=== PATIENT | female | born 1945 | race Caucasian/White ===

== ENCOUNTER 2018-03-02 22:04 | Inpatient (IN) | payer MEDICARE ==
[~2018-03-02] VITALS: Ht 162.6 cm; Wt 44.9 kg
[2018-03-02 22:21] LABS: BASOPHILS ABSOLUTE AUTO 0.09 K/mm3 (0.00-0.23); BASOPHILS PERCENT AUTO 1 % (0-2); EOSINOPHILS ABSOLUTE AUTO 0.38 K/mm3 (0.00-0.68); EOSINOPHILS PERCENT AUTO 3 % (0-6); Hematocrit 35.8 % (33.0-51.0); Hemoglobin 12.2 g/dL (11.5-16.0); IMMATURE GRAN ABSOLUTE AUTO 0.02 K/mm3 (0.00-0.10); IMMATURE GRAN PERCENT AUTO 0 % (0-1); LYMPHOCYTES ABSOLUTE AUTO 3.14 K/mm3 (0.84-5.20); LYMPHOCYTES PERCENT AUTO 28 % (21-46); MONOCYTES ABSOLUTE AUTO 0.86 K/mm3 (0.16-1.47); MONOCYTES PERCENT AUTO 8 % (4-13); Mean Corpuscular HGB 30.7 pg (26.0-34.0); Mean Corpuscular HGB Conc 34.1 g/dL (31.5-36.5); Mean Corpuscular Volume 90 fL (80-100); Mean Platelet Volume 8.7 fL (9.1-12.4); NEUTROPHILS ABSOLUTE AUTO 6.65 K/mm3 (1.96-9.15); NEUTROPHILS PERCENT AUTO 60 % (41-73); Platelet Count 561 K/mm3 (150-400); RDW Coefficient Variation 12.9 % (11.7-14.2); RDW Standard Deviation 43.3 fL (35.1-46.3); Red Blood Cell Count 3.98 M/mm3 (3.80-5.20); White Blood Cell Count 11.14 K/mm3 (4.00-11.30)
[2018-03-02 22:38] LABS: Troponin I 0.035 ng/mL (0.000-0.040)
[2018-03-02 22:46] LABS: Albumin/Globulin Ratio 0.5 (0.8-1.8); Bilirubin, Total 0.2 mg/dL (0.1-1.0); Bun/Creatinine Ratio 18.6 (12.0-20.0); Calcium, Blood 11.2 mg/dL (8.5-10.1); Creatinine, Blood 1.13 mg/dL (0.40-1.00); Globulin, Blood 5.5 g/dL (2.2-4.0); Potassium, Blood 2.2 mmol/L (3.5-5.5); Total Protein, Blood 8.5 g/dL (6.4-8.2)
[2018-03-03] MEDS ORDERED: IBUPROFEN200 MG PO (00:04)
--- NOTE | 2018-03-03 05:10 | NUR ---
SHIFT SUMMARY PT ER ADMIT THIS SHIFT FOR HYPOKALEMIA. POTASSIUM CRITCAL AT 2.2. PT RECEIVED ORAL K+ IN THE ER, AND HAS RECEIVED A K RIDER AND MAGNESIUM SINCE HER ARRIVAL TO THE UNIT. MAITENANCE FLUIDS WITH POTASSIUM INFUSING AT THIS TIME. AWAITING AM LAB RESULTS AT THIS TIME PT HAS HAD A CHEST X-RAY, AND IS AWAITING A CHEST CT AT THIS TIME. PT ALSO COMPLAINS OF PERSISTANT BACK PAIN, THAT SHE SAYS STARTED ABOUT 2-3 WEEKS AGO. INTENISTY INCREASES WITH MOVEMENT. MEDICATED X1 WITH IV FENTANYL WHICH PROVIDED RELIEF. UA SENT. PT DENIES N/V. TELE IN PLACE WITH NSR. SHE IS A/OX4. PLESANT WITH CARE. ADMISSION COMPLETE. WILL CONTINUE TO MONITOR AND REPORT TO ONCOMING RN.
[2018-03-03 05:19] LABS: Source, Urine Clean Catch
[2018-03-03 05:26] LABS: Appearance, Urine Hazy (Clear); Bilirubin, Urine Neg (Neg); Blood, Urine 1+ (Neg); Color, Urine Yellow (P-Yellow); Glucose Qualitative, Urine Neg (Neg); Ketones, Urine Neg (Neg); Leukocyte Esterase, Urine 3+ (Neg); Nitrite, Urine Neg (Neg); Protein, Urine 2+ (Neg); Specific Gravity, Urine 1.015 (1.003-1.022); Urobilinogen, Urine NORM (Normal)
[2018-03-03 05:28] LABS: Hematocrit 31.9 % (33.0-51.0); Hemoglobin 10.8 g/dL (11.5-16.0); Mean Corpuscular HGB 30.2 pg (26.0-34.0); Mean Corpuscular HGB Conc 33.9 g/dL (31.5-36.5); Mean Corpuscular Volume 89 fL (80-100); Mean Platelet Volume 9.2 fL (9.1-12.4); Platelet Count 484 K/mm3 (150-400); RDW Standard Deviation 42.6 fL (35.1-46.3); Red Blood Cell Count 3.58 M/mm3 (3.80-5.20); White Blood Cell Count 8.22 K/mm3 (4.00-11.30)
[2018-03-03 05:31] LABS: Red Blood Cells, Urine 0-2 /hpf (0-2)
[2018-03-03 05:32] LABS: Bacteria Many /hpf; Squamous Epithelial Cells Many /hpf (Few)
[2018-03-03 06:06] LABS: Albumin, Blood 2.5 g/dL (3.4-5.0); Albumin/Globulin Ratio 0.6 (0.8-1.8); Bilirubin, Total 0.2 mg/dL (0.1-1.0); Bun/Creatinine Ratio 17.8 (12.0-20.0); Calcium, Blood 10.1 mg/dL (8.5-10.1); Creatinine, Blood 1.01 mg/dL (0.40-1.00); Globulin, Blood 4.4 g/dL (2.2-4.0); Potassium, Blood 2.8 mmol/L (3.5-5.5); Total Protein, Blood 6.9 g/dL (6.4-8.2)
--- NOTE | 2018-03-03 07:09 | NUR ---
PT GAVE VERBAL CONSENT FOR ME TO TREAT HER TODAY.
--- NOTE | 2018-03-03 08:47 | NUR ---
PT. GIVEN 50 MEQ OF IV FENTANYL FOR REPORT OF ICREASING PAIN.
--- NOTE | 2018-03-03 10:57 | NUR ---
NOTIFIED THAT THE FENTYNYL IV WAS ONLY LASTING FOR 15 MINUTES, ORDERED DILAUDID, GAVE 1 MG IV DILAUDID BEFORE PT. WENT TO CT.
--- NOTE | 2018-03-03 15:00 | NUR ---
PT. HAS A NEW DIAGNOSIS OF ADVANCED CANCER. PT. AND DAUGHTER EXTREMELY UPSET. REQUESTED ATIVAN FOR PT. TO HELP HER DEAL WITH THE NEW DIAGNOSIS. SPIRITUAL CARE WORKER JOAN IN TO SEE PATIENT THEN PALLIATIVE CARE TO SEE PT. AND DAUGHTER. PT. WAS GIVEN IMG IV ATIVAN AND 1 MG IV DILAUDID. PT. HAS BEEN SLEEPING SINCE. PT. BREATHING EVEN AND DEEP.
--- NOTE | 2018-03-03 15:14 | NUR ---
Called to room by chaplain Jenn. Pt has just received a lung cancer diagnosis. Daughter is polite and able to talk. Pt is snoring in bed after being medicated with Ativan, following the doctor telling her of the news. Apparently, she was distraught to the point she required medication to calm her down. Daughter is at bedside. She will be heathcare designate. She lives in [place], across the street from her mother, they are very close, she reports. Reviewed code status briefly. Gave information on advance directives, POLST, and life saving interventions. Daughter is tearful. Explained that I am a Palliative care nurse and will assist with symptom control. Will remain available.
--- NOTE | 2018-03-03 16:09 | NUR ---
Per admit trigger, I attempted ot meet with Daisy regarding and advanced directive and offer prayer. When I entered room, Daisy was sobbing and inconsolable. Dtr explained pt had just been told she has cancer. Daisy then said, "There's nothing they can do. I'm going to !" Clearly, this was not the proper time to address AD. It was also apparent pt and family needed time to come to terms with dx. That said, I suspected they had not heard the entirety of physician's comments. Asked Patrica from Palliative Care to see pt and family. RN also asked physician to return. I will attempt to see Daisy tomorrow.
--- NOTE | 2018-03-03 18:45 | NUR ---
PT. SLEEPING, PT. SON IN ROOM AT THIS TIME. NO OTHER CHANGES NOTED THIS SHIFT.
--- NOTE | 2018-03-03 21:52 | NUR ---
BP 187/88 AND APRESOLINE 10 MG IV GIVEN PER EMAR OF=956/77 ON REASSESSMENT. CALL LIGHT IN REACH WILL CONTINUE TO MONITOR.
--- NOTE | 2018-03-04 00:08 | NUR ---
PATIENT CONFUSED AND ASKED WHO IS MAKING COOKIES. PATIENT REORIENTED BACK TO PLACE. CALL LIGHT IN REACH.
--- NOTE | 2018-03-04 02:53 | NUR ---
PATIENT HAVING URINARY RETENTION. LAST TWO VOIDS WERE 20 AND 1O mL. BLADDER SCAN RESIDUAL 986mL. HOSPITALIST DR RIOS NOTIFIED AND REPORTS STRAIGHT CATH TIMES ONE AND BLADDER SCAN IN SIX HOURS.
--- NOTE | 2018-03-04 02:57 | NUR ---
PATIENT STRAIGHT CATH AFTER INCONTINENT VOID AND 800 mL OUT. WILL PASS ALONG TO DAY RN TO BLADDER SCAN IN SIX HOURS. PATIENT TOLERATED WELL. CALL LIGHT IN REACH.
--- NOTE | 2018-03-04 04:20 | NUR ---
SHIFT SUMMARY PATIENT HAD URINARY RETENTION OF [address] RIOS ORDERED STRAIGHT CATH X ONE AND RECHECK IN SIX HOURS AT 08:30. 800mL OUT ON STRAIGHT CATH AFTER INCONTINENT VOID. PATIENT BP 187/88 AND APRESOLINE 10 MG IV GIVEN PER EMAR AND RECHECKED AT 157/71. DILAUDID 1MG GIVEN FOR BACK PAIN X TWO. PATIENT ABLE TO SLEEP AFTER PAIN MEDS. PATIENT CONFUSED EARLY IN SHIFT AND ASKED WHO WAS MAKING COOKIES. PIV INTACT. PULP MACHINE OPERATOR REPORTS NSR 80. PATIENT TWO PERSON ASSIST THIS SHIFT COMPARE TO ONE ON DAYS. STAYING SLUMPED OVER ON STAND PIVOT TRANSFER. REDUCED ANXIETY THIS SHIFT. CALL LIGHT IN REACH. BED IN LOWEST POSITION. WILL CONTINUE TO MONITOR UNTIL DAY SHIFT NURSE ASSUMES CARE.
[2018-03-04 06:04] LABS: Mean Platelet Volume 9.4 fL (9.1-12.4); Platelet Count 492 K/mm3 (150-400)
[2018-03-04 06:18] LABS: International Normalized Ratio 1.03; Prothrombin Time Results 10.6 Sec (9.7-11.5)
[2018-03-04 10:27] LABS: Bun/Creatinine Ratio 11.9 (12.0-20.0); Calcium, Blood 10.2 mg/dL (8.5-10.1); Creatinine, Blood 1.01 mg/dL (0.40-1.00); Potassium, Blood 2.7 mmol/L (3.5-5.5)
--- NOTE | 2018-03-04 12:20 | NUR ---
DAUGHTER JUDE RETURNED TO ROOM, WENT IN TO LET HER KNOW WHAT I FOUND OUT ABOUT DR. HERRERA COMING TO SEE PT. IN THE HOSPITAL. DAUGHTER BECAME ANGRY WHEN I TOLD HER THE APPOINTMENT WASN'T UNTIL NEXT THURSDAY AN OUTPATIENT. SHE YELLS "WHY 5 DAYS THATS A WHOLE WEEK" TRIED TO EXPLAIN DR. HERRERA WOULDN'T HAVE THE BIOPSY RESULTS UNTIL THEN YELLED "ARE YOU KIDDING ME, WHY SO LONG?" LET HER KNOW THE BIOPSY HAS TO BE SENT OUT. WENT ON TO EXPLAIN PT. DID NOT HAVE INSURANCE, DAUGHTER STATES " SHE HAS MEDICARE" I EXPLAINED SHE ONLY HAS PART-A WHICH COVERS HOSPITALIZATION ONLY. LET HER KNOW I CONTACTED [employer] TO HAVE THEM COME TALK TO HER ABOUT INSURANCE. "WELL WHAT ABOUT [employer] SHOULDN'T THAT TAKE CARE OF IT?" TOLD HER I WAS UNSURE OF THAT S.S. COULD EXPLAIN THAT. DAUGHTER STATES "I DON'Y LIKE YOU AND IM GOING TO REPORT YOU TO HAND SEWER " " DON'T EVER TALK TO MY MOM AGAIN, YOU TALK TO MY SISTER OR I" EXPLAINED YHE PT. HAS A RIGHT TO KNOW AND WE CANNOT WITHHOLD INFORMATION. STATES "I DONT CARE YOU TELL ME OR MY SISTER."
--- NOTE | 2018-03-04 16:30 | NUR ---
PT. STILL UNABLE TO VOID , BLADDER SCAN SHOWED 547 CC, ASSISTED TO BSC BUT PT. STLL UNABLE TO VOID AND REPORTING INCREASING PAIN IN BLADDER AREA, 16 [place] CATHETER PLACED WITH 800 CC'S CYU RETURN. UA SENT PER PROTOCOL/
[2018-03-04 16:38] LABS: Source, Urine Catheter
[2018-03-04 16:41] LABS: Appearance, Urine Clear (Clear); Bilirubin, Urine Neg (Neg); Blood, Urine 1+ (Neg); Color, Urine Yellow (P-Yellow); Glucose Qualitative, Urine Neg (Neg); Ketones, Urine 1+ (Neg); Leukocyte Esterase, Urine Neg (Neg); Nitrite, Urine Neg (Neg); Protein, Urine 2+ (Neg); Specific Gravity, Urine 1.015 (1.003-1.022); Urobilinogen, Urine NORM (Normal)
[2018-03-04 16:49] LABS: Bacteria Rare /hpf; Squamous Epithelial Cells Rare /hpf (Few); White Blood Cells, Urine 0-2 /hpf (0-5)
--- NOTE | 2018-03-04 16:51 | NUR ---
Attempted to meet with family/pt this afternoon. Pt alone in room and sleeping. I will remain available.
--- NOTE | 2018-03-04 18:33 | NUR ---
PT. SLEEPING AT THIS TIME, PT HAS ONLY TAKEN SIPS OF FULL LIQUIDS. 2 K-RIDERS GIVEN TODAY PLUS 40MEQ OF KDUR PO. PT. ABLE TO FEED SELF BUT NEEDS HEAVY ASSIST TO BSC. PT. NOTED TO BE CONFUSED WHEN WAKING THIS MORNING, THOUGHT IT WAS STILL YESTERDAY. PT. FAMILY HAS BEEN IN AND OUT OF ROOM TODAY ALONG WITH FRIENDS. PT'S SON AND DAUGHTER JUDE CAN BECOME VOLATILE AT THE DROP OF A HAT.
--- NOTE | 2018-03-05 04:06 | NUR ---
SHIFT SUMMARY PATIENT HAD NO ACUTE CHANGES OBSERVED THIS SHIFT. AXOX 3 WITH CONFUSION AT TIMES. TWO PERSON ASSIST TO BSC. PIV REMAINS INTACT. CUMMINGS PATENT AND DRAINING. SCHEDULING SPECIALIST REPORTS NSR 80. DILAUDID 1 MG IV GIVEN PER EMAR. PATIENT ABLE TO SLEEP AFTER PAIN MANAGEMENT. DENIES SOB AND N/V. CALL LIGHT IN REACH. BED IN LOWEST POSITION. WILL CONTINUE TO MONITOR UNTIL DAY SHIFT NURSE ASSUMES CARE.
[2018-03-05 05:29] LABS: Anion Gap 11 mmol/L (6-16); Blood Urea Nitrogen 13 mg/dL (8-24); Bun/Creatinine Ratio 13.5 (12.0-20.0); CO2, Blood 13 mmol/L (21-32); Calcium, Blood 10.7 mg/dL (8.5-10.1); Chloride, Blood 120 mmol/L (98-108); Creatinine, Blood 0.97 mg/dL (0.40-1.00); Glomerular Filtration Rate >60 (60-); Glucose, Blood 103 mg/dL (70-99); Potassium, Blood 3.5 mmol/L (3.5-5.5); Sodium, Blood 144 mmol/L (136-145)
--- NOTE | 2018-03-05 06:01 | NUR ---
BP 187/84 AND IV APRESOLINE 10 MG GIVEN BP 156/81 ON REASSESSMENT. CALL LIGHT IN REACH.
--- NOTE | 2018-03-05 08:00 | NUR ---
PT IN PAIN. A/O STATES PAIN IN BACK. FROM CANCER. HAS BEEN FOR AT LEAST A MONTH. H/R REG, NO MURMER NOTED. TELE REMOVED PER DR ORDERS. LUNGS CLEAR, RESP LABORED. ON R/A. BT HYPO. PT STATES NOT EATING MUCH IN LAST FEW DAYS. LAST BM 3 DAYS. VOIDS CUMMINGS CATH, CLEAR YELLOW FLUID DRAINING. 1 HEAVY ASST. VERY WEAK. NEW CANCER DIAGNOSIS. BED IN LOW POSITION, CALL LITE IN REACH, CALLS APPROP
--- NOTE | 2018-03-05 10:00 | NUR ---
TALKED TO PT AND DAUGHTER AT LENGTH ABOUT NEW PAIN CONTROL. LONG ACTING OXY AND SHORT ACTING TO BREAK PAIN NEEDED. DID START DAY WITH 2 SHORT ACTING OXY AND NOT RESOLVED. ADDING TO LONG ACTING STARTING SHORTLY. THEN GOING TO SHORT ACTING PRN. PT AND DAUGHTER UNDERSTAND BALANCE BETWEEN STAYING AWAKE, BREATHING, AND PAIN CONTROL. CONTINUE TO MONITOR AND MEDICATE.
--- NOTE | 2018-03-05 14:29 | NUR ---
PT DAUGHTER ADVISED PT IN PAIN. SPOKE TO PT. GAVE HER 1 SHORT ACTING PAIN MED. ALREADY HAS LONG ACTING ON BOARD. DISCUSSED 1 MORE AVAIL. WANT PAIN DOWN AND NOT OVER SEDATED. AGREED BY ALL. CONTINUE TO MONITOR.
--- NOTE | 2018-03-05 14:51 | NUR ---
PT STATES PAIN BETTER NOW. STILL ABOUT 3-4 BUT TOLERABLE. DENIES ADDITIONAL PAIN MED. ADVISED IS AVAIL AT JUST A CALL. CALL LITE IN REACH, CALLS APPROP. BED I LOW POSITION, DAUGHER NOT IN ROOM AT THIS MOMENT.
--- NOTE | 2018-03-05 16:26 | NUR ---
PT RESTING, EYES CLOSED, RESP EASY, UNLABORED. DID NOT AWAKEN.
--- NOTE | 2018-03-05 17:14 | NUR ---
PT RESTING, AWOKE TO ASK HOW PAIN IS.. SHE MUCH BETTER NEARLY GONE. FALLS ASLEEP READILY WHEN STOP TALKING TO HER. EASY TO AWAKEN.
--- NOTE | 2018-03-05 19:16 | NUR ---
PT RESTING NOW. STATES PAIN UNDER CONTROL. AWAKENS EASILY WHEN TALKED TO, BUT DOES FALL ASLEEP QUICKLY. DID PLACE MEPELEX ON COCCYX FOR PROTECTION OF BONY AREA. IS SOME REDNESS. ADVISED PT TO STAY OFF BACK AND MOVE TO SIDES REGULARLY PILLOWS PLACED WHEN ON BACK TO KEEP TO EITHER SIDE. NO OTHER CONCERNS AT THIS TIME. DR MARKS WILL SEE PT AND DISCUSS PROGNOSIS . BED IN LOW POSITION,, CALL LITE IN REACH, CALLS APPROP, BED ALARM ON FOR SAFETY
--- NOTE | 2018-03-06 04:04 | NUR ---
CALL PLACED TO HOSPITALIST, DR RIOS, IN REGARDS TO POSITIVE URINE CULTURE ON 03/03/18 @ 5707. PT NOT ON ANY ANTIBIOTICS, AND NO NOTES CHARTED ABOUT DISPOSITION OF THIS POSITIVE CULTURE. DR RIOS REPORTS THAT HE WILL LOOK AT PATIENTS CHART AND "TAKE CARE OF IT".
--- NOTE | 2018-03-06 06:18 | NUR ---
SHIFT SUMMARY: PT DROWSY, RESPONSIVE TO VERBAL STIMULI. C/O OF BACK PAIN, WINCING c ALL MOVEMENT. RECIEVING OXYCODONE Q4H, HOWEVER THIS AM PAIN WAS SO SEVERE THAT SHE RQUIRED 1MG DILAUDID FOR RELIEF. SCHEDULED OXYCONTIN BID. FAMILY CALLED EARLIER IN SHIFT FOR UPDATES ON PT, FAMILY BECAME VERY TEARFUL DURING PHONE CALL. CALLED HOSPITALIST EARLIER IN SHIFT IN REGARDS TO + URINE CULT ON 03/03/18. SEE PREVIOUS NOTE. WILL CONT TO MONITOR AND PROVIDE CARE UNTIL PRESUMED BY ONCOMING RN.
[2018-03-06 07:57] LABS: Bun/Creatinine Ratio 13.5 (12.0-20.0); Calcium, Blood 10.9 mg/dL (8.5-10.1); Creatinine, Blood 1.04 mg/dL (0.40-1.00); Potassium, Blood 3.7 mmol/L (3.5-5.5)
--- NOTE | 2018-03-06 09:15 | NUR ---
DR GIMENEZ IN TO SEE PT. PER DR GIMENEZ HE WILL CALL DR HERRERA TODAY. PALLIATIVE CARE AND SPIRITUAL CARE TO SEE PT. DAILY COLACE AND MIRALAX ORDERED FOR NO BM SINCE ADMIT.
--- NOTE | 2018-03-06 09:20 | NUR ---
ORDERS TO ADVANCE DIET TOLERATED. PT REPORTS SHE WANTS TO TRY FOOD. ORDER PLACED FOR SOFT DIET AND STRAWBERRY ENSURE WITH MEALS.
--- NOTE | 2018-03-06 17:04 | NUR ---
SHIFT SUMMARY- PT DROWSY T/O MOST OF THE SHIFT. OXYCONTIN INCREASED TO 15MG BID. PT AWAKES BUT SLOW TO RESPOND. BEDBATH GIVEN AND EGGCRATE AND HEAL PROTECTORS PLACED. LS DIMINISHED, MOIST OCC NPC, ON RA. BT HYPO, BOWEL PROTOCOL STARTED FOR NO BM SINCE ADMIT. POOR PO INTAKE, PT STATED SHE WANTED TO TRY SOFT MEALS BUT THEN DID NOT AWAKE TO EAT LUNCH. AWAITING DR HERRERA TO DISCUSS PLAN WITH PT AND FAMILY, ATTEMPTING TO CALL TODAY BUT DID NOT HEAR BACK. PT DOES HAVE AN APPT SCHEDULED WITH HIM AN OUTPATIENT. PLAN IS FOR DAUGHTER TO TAKE PT HOME. FLAGYL STARTED FOR UTI. NO OTHER ACUTE CHANGES THIS SHIFT.
[2018-03-07 05:00] LABS: Hemoglobin 10.5 g/dL (11.5-16.0); Mean Corpuscular HGB 29.7 pg (26.0-34.0); Mean Corpuscular HGB Conc 31.8 g/dL (31.5-36.5); Platelet Count 480 K/mm3 (150-400); RDW Coefficient Variation 13.8 % (11.7-14.2); RDW Standard Deviation 47.3 fL (35.1-46.3); Red Blood Cell Count 3.54 M/mm3 (3.80-5.20); White Blood Cell Count 12.79 K/mm3 (4.00-11.30)
[2018-03-07 05:01] LABS: Mean Corpuscular Volume 93 fL (80-100)
[2018-03-07 05:17] LABS: Anion Gap 13 mmol/L (6-16); Blood Urea Nitrogen 19 mg/dL (8-24); Bun/Creatinine Ratio 19.8 (12.0-20.0); CO2, Blood 16 mmol/L (21-32); Calcium, Blood 11.4 mg/dL (8.5-10.1); Chloride, Blood 121 mmol/L (98-108); Creatinine, Blood 0.96 mg/dL (0.40-1.00); Glomerular Filtration Rate >60 (60-); Glucose, Blood 130 mg/dL (70-99); Potassium, Blood 3.3 mmol/L (3.5-5.5); Sodium, Blood 150 mmol/L (136-145)
--- NOTE | 2018-03-07 07:12 | NUR ---
SHIFT SUMMARY: NO ACUTE CHANGES THIS SHIFT. PT LETHARGIC, SLEEPING/AROUSABLE T/O THE SHIFT. PAIN 10/10 THIS MORNING, CRYING OUT IN PAIN. ADMINISTERED 1 MG DILAUDID IV. Q2H TURNS, MEPILEX APPLIED TO COCCYX FOR BREAKDOWN. NO OTHER ACUTE CHANGES TO REPORT.
--- NOTE | 2018-03-07 10:11 | NUR ---
IV ACCESS- PT HAS A 20G IV TO RIGHT WRIST. IV DOCUMENTED IN RIGHT AC. UNSURE WHEN IV TO RIGHT WRIST PLACED.
[2018-03-07 13:30] LABS: Albumin, Blood 2.4 g/dL (3.4-5.0); Anion Gap 11 mmol/L (6-16); Blood Urea Nitrogen 22 mg/dL (8-24); Bun/Creatinine Ratio 22.4 (12.0-20.0); CO2, Blood 17 mmol/L (21-32); Calcium, Blood 11.7 mg/dL (8.5-10.1); Chloride, Blood 122 mmol/L (98-108); Creatinine, Blood 0.98 mg/dL (0.40-1.00); Glomerular Filtration Rate 59 (60-); Glucose, Blood 126 mg/dL (70-99); Potassium, Blood 3.8 mmol/L (3.5-5.5); Sodium, Blood 150 mmol/L (136-145)
--- NOTE | 2018-03-07 15:37 | NUR ---
PT DAUGHTER IN TO SEE PT. SHE REPORTS SHE WILL BE IN EARLY TOMORROW AM AT APROX [address] HERRERA. SHE IS ASKING THAT PAIN MEDICATIONS BE HELD TO ASSURE THAT HER MOTHER IS AWAKE AND ALERT TO MAKE DECISIONS REGARDING HER CARE AND PLAN. SHE IS ALSO ASKING THAT WE DO NOT GIVE OUT ANY INFORMATION TO ANYONE BUT HERSELF RACHEL THE DAUGHTER, INCLUDING HER BROTHER AND SISTER. SHE REPORTS SHE WILL BE TAKING OVER CARE FOR HER MOTHER UPON DISCHARGE AND HER MOM SIGNED A PAPER THAT STATED INFO TO ONLY BE GIVEN TO HER, I CONFIRMED THIS WITH THE CONSENT OF VERBAL RELEASE OF INFORMATION THAT PT SIGNED ON THE THAT ONLY HAS DAUGHTER GABBIE LISTED. DAUGHTER ALSO ASKS THAT WE ALLOW HER TO REST AND NOT GIVE HER PHONE CALLS AT THIS TIME. WILL PASS ALONG IN REPORT AND SIGN PLACED ON DOOR FOR VISITORS TO SEE NURSE PRIOR TO ENTERING.
--- NOTE | 2018-03-07 17:06 | NUR ---
SHIFT SUMMARY- PT VERY TEARFUL THIS AM AND REPORTED 10/10 BACK PAIN. OXYCONTIN 15MG INCREASED TO TID. PT HAS NOT REQUIRED ANY FURTHER PRN MEDS SINCE. PT HAS BEEN DROWSY BUT AWAKES TO VERBAL SIMULI, SLOW TO RESPOND. LS CLEAR/DIMINISHED, ON RA, RESP SHALLOW. HRR. MEPILEX TO COCCYX, EGGCRATE AND HEAL PROTECTORS IN PLACE, TURN Q2H. CUMMINGS DRAINING LAUREN URINE. POOR PO INTAKE, PT NEEDS ENCOURAGEMENT AND ASSISTANCE WITH EATING BUT WOULD ONLY TAKES BITES AND SIPS. MIRALAX AND COLACE GIVEN FOR NO BM, HOWEVER DAUGHTER REPORTS PT HAS NOT EATEN FOR QUITE SOME TIME. NEW IV PLACED TO LFA, 1/2NS AT 125 ML/HR RUNNING. DAUGHTER REPORTS SHE IS THE ONLY THAT SHOULD BE RECEIVING MEDICAL INFORMATION PER HER MOTHER. DAUGHTER TO BE IN EARLY TOMORROW TO MEET WITH DR HERRERA FOR PLAN.
--- NOTE | 2018-03-07 17:50 | NUR ---
PT AWAKE AND LOOKING AT ME WHEN ATTEMPTING TO GET PT TO TAKE A DRINK OF WATER HOWEVER PT DOES NOT SUCK ON STRAW WHEN ASKED TO AND PT NOTED TO BE HOLDING BITES IN HER MOUTH AND NOT FOLLOWING DIRECTION TO SWALLOW. MOUTH SWABBED OUT OF ANYTHING ORAL AND DINNER AND PM POTASSIUM HELD. AT THIS TIME DR PARADA CALLED FOR AN UPDATE AND NOTIFIED HER THAT PT HAS BEEN TOO DROWSY WITH INCREASE OF OXYCONTIN 15MG TO TID, DR PARADA DECREASED HER TO OXYCONTIN 10MG TID TO KEEP HER FROM BEING TO SEDATED.
--- NOTE | 2018-03-07 17:59 | NUR ---
rview of pt with physician and nursining awaiting oncology.
[2018-03-08 04:58] LABS: BASOPHILS ABSOLUTE AUTO 0.06 K/mm3 (0.00-0.23); BASOPHILS PERCENT AUTO 1 % (0-2); EOSINOPHILS ABSOLUTE AUTO 0.34 K/mm3 (0.00-0.68); EOSINOPHILS PERCENT AUTO 3 % (0-6); Hematocrit 30.4 % (33.0-51.0); Hemoglobin 9.5 g/dL (11.5-16.0); IMMATURE GRAN ABSOLUTE AUTO 0.04 K/mm3 (0.00-0.10); IMMATURE GRAN PERCENT AUTO 0 % (0-1); LYMPHOCYTES ABSOLUTE AUTO 1.41 K/mm3 (0.84-5.20); LYMPHOCYTES PERCENT AUTO 12 % (21-46); MONOCYTES ABSOLUTE AUTO 1.18 K/mm3 (0.16-1.47); MONOCYTES PERCENT AUTO 10 % (4-13); Mean Corpuscular HGB 30.1 pg (26.0-34.0); Mean Corpuscular HGB Conc 31.3 g/dL (31.5-36.5); Mean Platelet Volume 8.9 fL (9.1-12.4); NEUTROPHILS ABSOLUTE AUTO 9.08 K/mm3 (1.96-9.15); NEUTROPHILS PERCENT AUTO 75 % (41-73); Platelet Count 434 K/mm3 (150-400); RDW Coefficient Variation 13.8 % (11.7-14.2); RDW Standard Deviation 49.5 fL (35.1-46.3); Red Blood Cell Count 3.16 M/mm3 (3.80-5.20); White Blood Cell Count 12.11 K/mm3 (4.00-11.30)
[2018-03-08 05:00] LABS: Mean Corpuscular Volume 96 fL (80-100)
[2018-03-08 05:22] LABS: Albumin, Blood 2.1 g/dL (3.4-5.0); Anion Gap 12 mmol/L (6-16); Blood Urea Nitrogen 22 mg/dL (8-24); Bun/Creatinine Ratio 23.5 (12.0-20.0); CO2, Blood 16 mmol/L (21-32); Calcium, Blood 10.9 mg/dL (8.5-10.1); Chloride, Blood 120 mmol/L (98-108); Creatinine, Blood 0.94 mg/dL (0.40-1.00); Glomerular Filtration Rate >60 (60-); Glucose, Blood 101 mg/dL (70-99); Phosphorus, Blood 2.9 mg/dL (2.5-4.9); Potassium, Blood 3.2 mmol/L (3.5-5.5); Sodium, Blood 148 mmol/L (136-145)
--- NOTE | 2018-03-08 06:12 | NUR ---
SHIFT SUMMARY: NO ACUTE CHANGES TO REPORT. PT PAINFUL; REQUIRES 1MG OF PRN DILAUDID AT 2100. PT WAKES UP 1X SCREAMING OUT FOR DAUGHTER, AGITATED, CONFUSED. BECOMES TEARFUL UPON ANY INTERACTION, WITHDRAWN/FEARFUL/ANXIOUS. HAVING DIFFICULTY SWALLOWING PILLS, EVEN WHEN CRUSHED IN APPLESAUCE. CUMMINGS CATH IN PLACE. 1/2NS RUNNING @ 125 ML/HR. REFUSING ALL ORAL INTAKE, MOUTH SWABS ENCOURAGED. Q2H TURNS, MEPILEX ON COCCYX FOR BREAK DOWN. EGG CRATE MATTRESS IN PLACE. HEEL PROTECTORS ON. WILL CONT TO MONITOR AND PROVIDE CARE UNTIL PRESUMED BY ONCOMING RN.
--- NOTE | 2018-03-08 11:47 | NUR ---
Pt visit this AM. Pt is resting with her eyes closed during visit and appears comfortable with a FLACC score of 0/10. Pt's daughter Emily and Egg Candler present during visit. Emily reports the Dr Lara visited this AM and discussion was made about comfort measures and hospice. Educated Emily on comfort care measures including DNR status and she is agreeable with plan. Educated Emily on goal for same day admission to home hospice when discharged from hospital. Emily expresses concerns of her brother possibly causing issues or further anxiety for Pt and is considering placing Pt as confidential. Spoke with Dr Longoria and received V/O for order set of comfort measures and to D/C medications. Spoke with Pt's nurse Cathy and she is agreeable with plan. Plan is for Pt to go home on hospice and will remain available for symptom management and therapeutic visits.
--- NOTE | 2018-03-08 14:13 | NUR ---
Met with dtr, Emily. She is tearful, but appropriate. She understands her mom is nearing end-of-life, and responded well to emotional encouragement. Emily expressed concerns about her brother. According to her, "he is unpredictable and angry." He lives in his mom's home, and Emily states that when mom dies, he will be homeless. She expresed concern that he will return to hospital and be loud and aggressive. Advised Emily about "confidential" status. She is fearful "that will set him off." Asked by staff to meet with pt's son if/when he returns. Later in afternoon, I met with pt's dtr Melinda, her spouse and son. They are calm and appropriate and have arrrived from [place]. Gently explained hospice/ copmfort care. They agree this is the best POC. I will remain available to this family.
--- NOTE | 2018-03-08 17:20 | NUR ---
SHIFT SUMMARY PT NOW ON COMFORT CARE. AWAITING HOSPISE APPROVAL. PT RESTING COMFORTABLY IN BED. FENTANYL PATCH IN PLACE. PT HAS BEEN TOLERATING 20MG ROXINOL ORALLY. FAMILY IN ROOM MOST THE DAY. PT TOLERATED REPOSITIONING TWICE THIS SHIFT. BREIF CLEAN & DRY AT THIS TIME. CUMMINGS PATENT & DRAINING. PT ALERT & ORIENTED WHEN AWAKE. NO OTHER CHANGES IN ASSESSMENT AT THIS TIME. WILL CONTINUE TO MONIOTOR & MEDICATE NEEDED.
--- NOTE | 2018-03-09 07:00 | NUR ---
finally accepted pain medication after much encouragement, lots of pain in movement but continued to decline pain mendication but unable to communicate why, after medication has been resting quietly. call light in reach, saline locked, room air, walking rounds completed with day shift
--- NOTE | 2018-03-09 07:51 | NUR ---
PATIENT IS ASLEEP, APPEARS TO BE RESTING COMFORTABLY. RN WILL CONTINUE TO MONITOR.
--- NOTE | 2018-03-09 09:38 | NUR ---
PATIENT STILL RESTING, APPEARS COMFORTABLE. NO SIGNS OF PAIN OR DISTRESS. FAMILY AT THE BEDSIDE. DENIES ANY NEEDS AT THIS TIME. PALLIATIVE CARE NURSE CONSULTED. RN WILL CONTINUE TO MONITOR.
--- NOTE | 2018-03-09 09:39 | NUR ---
Pt resting in bed with her eyes closed and appears comfortable. FLACC score is 0/10. Pt's daughter present during visit. She reports a plan to contact [facility] disability to inquire about her being the Pt's paid caregiver. She reports no conerns at this time. Spoke with Pt's nurse Kateryna and she reports no concerns at this time. Will remain available.
--- NOTE | 2018-03-09 12:45 | NUR ---
PATIENT HAS BEEN SLEEPING THROUGHOUT THE SHIFT. APPEARS TO BE COMFORTABLE. DAUGHTER IS AT THE BEDSIDE, WHEN I WENT IN SHE ASKED US TO NOT REPOSITION THE PATIENT BECAUSE SHE SEEMED COMFORTABLE. WILL CONTINUE TO MONITOR.
--- NOTE | 2018-03-09 15:59 | NUR ---
PATIENT RESTING, APPEARS TO BE COMFORTABLE. NO SIGNS OF DISTRESS OR DISCOMFORT. PATIENT REPOSITIONED. OPENED HER EYES FOR A MINUTE DURING REPOSITIONING BUT DID NOT RESPONSED VERBALLY. RN WILL CONTINUE TO MONITOR.
--- NOTE | 2018-03-09 16:05 | NUR ---
SHIFT SUMMARY PATIENT IS ON COMFORT CARE. HAS BEEN ASLEEP THROUGHOUT THE ENTIRE SHIFT. HAS SHOWN NO SIGNS OF PAIN OR DISCOMFORT. DAUGHTER HAS BEEN AT THE BEDSIDE THROUGHOUT THE SHIFT, SHE HAS REQUESTED A FEW TIMES THAT WE DID NOT REPOSITION THE PATIENT BECAUSE SHE WAS RESTING COMFORTABLY. CUMMINGS EMPTIED PRN. NO BM. PATIENT HAS NOT WAKEN UP TO EAT OR DRINK ANYTHING. BED ALARM IS ON, CALL LIGHT WITHIN REACH. NO ACUTE CHANGES. RN WILL CONTINUE TO MONITOR.
--- NOTE | 2018-03-09 18:22 | NUR ---
No family present at time of visit. Daisy appears non-responsive and peaceful. No visible signs of pain or distress. Sat at bedside, providing calm presence. I will remain available to pt and family.
--- NOTE | 2018-03-09 19:26 | NUR ---
LATE ENTRY SON AND HIS AT THE BEDSIDE REQUESTING TO SEE THE LEADERSHIP PROGRAM INTERN ADILIA REGARDING PATIENT DISCHARGING HOME WITH HER DAUGHTER. RN NOTIFIED SON LEADERSHIP PROGRAM INTERN WAS GONE FOR THE DAY AND WOULD BE BACK AT 0800. THE SON BECAME VERY AGGRESIVE AND ANGRY WHEN SPEAKING ABOUT NOT WANTING HIS MOTHER TO DISCHARGE HOME WITH THE DAUGHTER. HE WAS YELLING AND CLENCHING HIS FISTS. CHARGE NURSE ABY WAS NOTIFIED. SON LEFT BEFORE SECURITY WAS CALLED. RN EXPLAINED TO THE SONS THAT NO INFORMATION COULD BE GIVEN OUT TO ANYONE NOT ON THE PATIENT INFORMATION CONSENT LIST, AND AT THIS TIME RACHEL IS THE ONLY PERSON ON THAT LIST. RN PASSED THIS ONTO THE ONCOMING SHIFT. LEADERSHIP PROGRAM INTERN WILL BE NOTIFIED IN THE MORNING.
--- NOTE | 2018-03-10 07:27 | NUR ---
orintated to self, difficulty breating, treated, call light in reach, comfort care/DNR, 2L via nc r/breating issues, saline locked
--- NOTE | 2018-03-10 07:39 | NUR ---
PATIENT IS AWAKE WITH EYES OPEN THIS MORNING. APPEARS TO BE RESTLESS AND IN PAIN, STATES SHE IS HAVING PAIN. RN MEDICATED PER E APR. PATIENT IS COUGHING UP SECRECTIONS, RN SUCTIONED PER ORDERS. PATIENT CONTINUED TO COUGH AND POINT TO HER THROAT. RN MEDICATED WITH ATROPINE DROPS PER Apr. RT WAS CALLED AND CAME TO SUCTION ORALLY. PATIENT APPEARS TO BE MORE COMFORTABLE NPW. IS COMMUNICATING VERBALLY, SPEECH IS HARD TO UNDERSTAND BUT SOUNDS A LOT LESS CONGESTED. RN WILL CONTINUE TO MONITOR.
--- NOTE | 2018-03-10 07:53 | NUR ---
EMPTIED 840 OUT OF FOLLEY.
--- NOTE | 2018-03-10 10:23 | NUR ---
PATIET RESTING, APPEARS COMFORTABLE. REPOSITIONED ONTO LEFT SIDE, SITTING UP. OPENS EYES WHEN YOU TALK TO HER BUT NO VERBAL REPONSE BACK. DOES NOT APPEAR TO BE PAINFUL AT THIS TIME. DAUGHTER ADILIA IS AT THE BEDSIDE. ORAL CARE PROVIDED BY NURSE. SUCTIONING NEEDED WHEN PATIENT APPEARS TO BE COUGHING UP. RN WILL CONTINUE TO MONITOR.
--- NOTE | 2018-03-10 11:34 | NUR ---
PATIENT APPEARS TO BE RESTING COMFORTABLY. NO SIGNS OF DISTRESS OR PAIN. NO SUCTIOING NEEDED AT THIS TIME. FAMILY NOT PRESENT AT THIS TIME. RN WILL CONTINUE TO MONITOR.
--- NOTE | 2018-03-10 12:15 | NUR ---
PATIENT DID NOT EAT LUNCH THIS SHIFT DUE TO BEING TO ASLEEP AND UNABLE TO WAKE UP ENOUGH TO EAT.
--- NOTE | 2018-03-10 13:37 | NUR ---
PATIENT RESTLESS AND MOAANING. HAS A WET COUGH AND TRYING TO COUGH UP SECRETIONS. RN MEDICATED WITH 20 OF ROXANOL AND A SCOPOLAMINE PATCH. REPOSTIONED PATIENT, ATTEND CLEAN. FAMILY AT THE BEDSIDE. PATIENT NOW APPEARS TO BE RESTING MORE COMFORTBLY. RN WILL CONTINUE TO MONITOR.
--- NOTE | 2018-03-10 14:36 | NUR ---
Daisy was alone in room when I visited. She appears to be nearing end-of-life. Breaths very irregular and non-responsive to voice or touch. Provided calm presence. T/C to son, Khris. He was upset and loud. He told me that he wants his mom "to at [facility] like [place] did." "She is absolutley not going to [facility]!" "I will do everything in my power to keep that from happening." I advised him that, according to staff, he had been loud and aggressive in pt's room, and staff felt threatened by him. "So? She's MY MOM." When I told him I was the communications professional, he calmed considerably and apologized. I informed him that his aggressive behavior would not be tolerated, and if he wanted to continue visiting his mom in hospital, he needed to be much more calm. He then became tearful and responded well to gentle sexual assault counselor. I will remain available.
--- NOTE | 2018-03-10 17:25 | NUR ---
PATIENT APPEARS TO BE RESTLESS, IS MOANING. HAS A WET COUGH AND IS TRYING TO COUGH UP SECRETIONS. RN ATTEMPTED TO SUTION. RT CALLED TO SUCTION. PATIENT MEDICATED FOR PAIN WITH 20MG OF ROXANOL AND ATROPINE FOR SECRETIONS. APPEARS TO BE RESTING COMFORTABLY NOW. SAMPLING THEORY TEACHER AT THE BEDSIDE. DAUGHTER AND FAILY AT THE BEDSIDE. RN WILL CONTINUE TO MONITOR.
--- NOTE | 2018-03-10 17:48 | NUR ---
Met with dtrEmily at bedside this evening. She attempted to wake up pt to ask about MPOA. Pt did not awaken enough for lucid conversation. Provided comfort and certified personal finance counselor to emily to good effect. I will remain available.
--- NOTE | 2018-03-10 18:57 | NUR ---
SHIFT SUMMARY PATIENT HAS BEEN RESTING THROUGHOUT THE SHIFT. WOKE UP AT TIMES MOANING AND COUGHING WITH A WET COUGH. RN MEDICATED FOR SECRETIONS AND MEDICATION PER E MAR THROUGHOUT THE SHIFT. RESTED COMFORTABLY AFTER MEDICATING. FAMILY COMES AND GOES THROUGHOUT THE SHIFT. NO PLANS FOR PATIENT DISCHARGE AT THIS TIME DUE TO FAMILY ISSUES REGARDING WHO AND WHERE SHE GOES. COMFORT CARE ASSESSMENT EVERY 2 HOURS. REPOSITIONED AND SELF CARE DONE Q2 HOURS. NO ACUTE CHANGES.
--- NOTE | 2018-03-10 23:32 | NUR ---
Pt does not respond to verbal stimuli, repositioned to left side, oral care and face washed, hair combed. Pt with frazier with minimal output. No obvious secretions. No evidence of discomfort. Will continue to monitor.
--- NOTE | 2018-03-11 01:46 | NUR ---
0130 Pt was repositioned to left side. Pt is having some bleeding from rt nostril, perhaps drying from O2? Pt oral suctioned for bright red blood from bloody nose. Pressure held to nose. No further bleeding noted. Pt given atropine drops and roxinal 20 mg for moaning and increased discomfort. HOB up 45 degrees. Will continue to monitor closely.
--- NOTE | 2018-03-11 07:26 | NUR ---
Rn summary: Patient remains unresponsive. No further nosebleed noted. Has a moist cough, unable to bring up sputum, occ oral yanchar suction. Pt is warm this am, blanket off and cool cloth to forehead. Dk wendy urine in frazier. No family in room this shift. Report to day shift RN.
--- NOTE | 2018-03-11 07:51 | NUR ---
PATINT RESTING THIS MORNING. APPEARS COMFORTABLE, NO SIGNS OF DISTRESS OR PAIN. DOES SOUND WET IN HER BREATHING, RN MEDICATED WITH ATROPINE PER E APR. PATIENT HAS A WET WASH CLOTH TO FOREHEAD PLACED BEFORE COMING ONTO SHIFT BECAUSE SHE WAS FEELING WARM. RN WILL CONTINUE TO MONITOR.
--- NOTE | 2018-03-11 10:42 | NUR ---
Pt is resting comfortably in bed. She is not awake. Many family members at bedside, visiting, laughing. It seems like they are enjoying their time with the patient. Daughter has questions regarding end of life symptoms, answered all. She verbalizes understanding. Sister at bedside. She is wondering if hospital has notary. She expresses dismay that the family will have to figure out what each child "gets" when the patient passes away. She is anticipating some family dysfunction after patient passes. Advised that there is a notary on premises. She is hoping that the pt will wake up enough to complete a will. Advised that she can have the nurse kody Bingham, patient advocate, to assist. I really don't see the patient having more lucid moments unless a good rally comes for her. Will remain available.
--- NOTE | 2018-03-11 12:15 | NUR ---
PATIENT APPEARS RESTLESS, COUGHING WITH A WET COUGH. COUGH IS WEAK. RN MEDICATED FOR PAIN AND SECRETIONS PER E MAR. FAMILY IS AT THE BEDSIDE. REQUESTS THAT WE DO NOT REPOSITION THE PATIENT AT THIS TIME. APPEARS TO BE RESTING COMFORTABLY NOW. RN WILL CONTINUE TO MONITOR.
--- NOTE | 2018-03-11 13:57 | NUR ---
PATIENT IS VERY RESTLESS AND MOANING. HAS A VERY WET AND CONGESTED COUGH. MEDICATED FOR PAIN AND ATIVAN FOR ANXIETY. FAMILY AT THE BEDSIDE.
--- NOTE | 2018-03-11 18:07 | NUR ---
Met with Radhika, pts dtr and Khris, pts son. Pts sister and best friend were also present. Khris left quickly when I arrived and remaing family/friends spent great deal of time telling me about Khris's emotional struggles and assuring me that he would no longer be threatening to staff. Provided emotional education and credit counselor regarding end-of-life remorse, regrets, and forgiveness. Radhika, in particular, appeared to appreciate these interventions. Encouraged calm, loving environment and ensuring pt that family would look after Khris. They agreed this was a forgotten, but neccessary step. Daisy appeared non-responsive, breaths even, but shallow at time of visit. Skin changes noticable. Advised acid tank liner services would remain available.
--- NOTE | 2018-03-11 19:03 | NUR ---
SHIFT SUMMARY PATIENT REMAINS UNRESPONSIVE, MOANS AT TIMES. CONTINUES TO HAVE A WEAK WET COUGH. MEDICATED FOR PAIN AND SECRETIONS THROUGHOUT THE SHIFT. FAMILY AT THE BEDSIDE ALL DAY. CUMMINGS DRAINING DARK URINE. REPORT GIVEN TO DOCUMENTATION SPECIALIST RN.
--- NOTE | 2018-03-12 00:16 | NUR ---
NOTIFIED FAMILY OF PT *LATE ENTRY* PT PASSED @ 0. NOTIFIED STEFANO (DAUGHTER) @231. DAUGHTER, SON & SISTER ARRIVED TO VISIT PT BY [id number]. NOTIFIED OTHER DAUGHTERRACHEL OF PT PASSING AROUND 0010, PT REPORTED SHE WOULD BE IN TO VISIT PT IN ROUGHLY 20MIN.
== END 2018-03-11 23:10 | DRG 641 ==
LOC: ER 22:04 → MEDS 22:48 → EDPENDDIS 03-11 07:12 → ENPENDDIS 03-11 07:12 → MEDS 03-11 23:10
PROVIDERS: Emergency Medicine; Internal Medicine; ADMIT Internal Medicine
PROC: 0BBC3ZX Excision of Right Upper Lung Lobe, Percutaneous Approach, Diagnostic (ICD-10-PCS; principal; 2018-03-04)
DX: E87.6 Hypokalemia (principal); N17.9 Acute kidney failure, unspecified; C77.1 Secondary and unspecified malignant neoplasm of intrathoracic lymph nodes; C79.51 Secondary malignant neoplasm of bone; C34.11 Malignant neoplasm of upper lobe, right bronchus or lung; G82.20 Paraplegia, unspecified; Z68.1 Body mass index [BMI] 19.9 or less, adult; E87.2 Acidosis; E83.52 Hypercalcemia; E86.0 Dehydration; R50.9 Fever, unspecified; E11.9 Type 2 diabetes mellitus without complications; Z51.5 Encounter for palliative care; I10 Essential (primary) hypertension; R53.1 Weakness; G89.3 Neoplasm related pain (acute) (chronic); Z66 Do not resuscitate; R63.4 Abnormal weight loss; R11.10 Vomiting, unspecified; R33.9 Retention of urine, unspecified; K52.9 Noninfective gastroenteritis and colitis, unspecified; F41.9 Anxiety disorder, unspecified; R04.0 Epistaxis; N76.0 Acute vaginitis; R29.6 Repeated falls; Z91.81 History of falling; Z28.20 Immunization not carried out because of patient decision for unspecified reason
CPT/HCPCS: 31720; 32405; 36415; 51702; 71046; 71260; 74177; 77012; 80048; 80053; 80069; 81001; 82378; 83036; 83690; 83735; 84100; 84132; 84484; 85025; 85027; 85049; 85610; 85730; 87086; 88305; 88341; 88342; 93005; 93010; 96374; 96375; 97110; 97163; 97530; 99285-25; J0360; J1170; J1650; J2060; J2405; J3010; J3475; J3480; J7030; J7040; J7050; Q9967